=== PATIENT | female | born 1980 | race Hispanic/Latino ===

== ENCOUNTER 2017-10-18 09:51 | Emergency (ER) | payer SELFPAY ==
[2017-10-18 10:04] VITALS: BP 115/77
--- NOTE | 2017-10-18 10:51 | XRay Report ---
ROUTINE CHEST, TWO VIEWS: HISTORY: Upper respiratory infection, cough. The trachea, heart, mediastinal contour, lung roy and bony thorax are unremarkable. IMPRESSION: Unremarkable chest x-ray.
[2017-10-18] MEDS: GUAIFENESIN DM SYRUP PO ONE (11:48)
[2017-10-18] MEDS: MOTRIN PO ONE (11:48)
[2017-10-18] MEDS: DUONEB *Not for PRN Use IH ONE (11:48)
--- NOTE | 2017-10-18 11:53 | Emergency Department Report ---
- General Chief Complaint: Upper Respiratory Infection Stated Complaint: FLU LIKE SYMPTOMS Time Seen by Provider: 10/18/17 10:39 Source: patient Mode of arrival: Ambulatory Limitations: No Limitations - History of Present Illness Initial Comments: 37-year-old female past medical history smoking, asthma presents with complaint of approximately 5 days of persistent cough and subjective fever and chills. Patient is awake alert and oriented 3 no audible wheezing or stridor on exam. Fully lucid. Primarily complaining of persistent slightly productive cough with greenish yellowish sputum. MD Complaint: fever, cough, sore throat Onset/Timin -: days(s) Severity: mild Improves With: nothing Context: sick contacts Associated Symptoms: fever, chills, myalgias, cough Treatments Prior to Arrival: none - Related Data Previous Rx's Medication Instructions Recorded Last Taken Type Albuterol Sulfate [Ventolin Hfa] 1 puff IH Q4H PRN #1 hfa.aer.ad 10/18/17 Unknown Rx Azithromycin [Zithromax Z-EWA] 250 mg PO QDAY #1 pack 10/18/17 Unknown Rx Benzonatate [Tessalon Perles] 100 mg PO Q8HR PRN #20 capsule 10/18/17 Unknown Rx Dextromethorphan/Benzocaine 1 each PO Q4H PRN #1 box 10/18/17 Unknown Rx [Cepacol Sorethroat-Cough Jyothi] Ibuprofen [Motrin] 800 mg PO Q8HR PRN #30 tablet 10/18/17 Unknown Rx Phenylephrine/Dm/Acetaminop/GG 10 ml PO Q6H PRN #1 liquid 10/18/17 Unknown Rx [Mucinex Wshq-Eoi-Lhvshawivd Lq] Allergies Allergy/AdvReac Type Severity Reaction Status Date / Time No Known Allergies Allergy Unverified 10/18/17 10:04 ED Review of Systems ROS: Stated complaint: FLU LIKE SYMPTOMS Other details as noted in HPI Constitutional: denies: chills, fever Eyes: denies: eye pain, eye discharge, vision change ENT: denies: ear pain, throat pain Respiratory: cough. denies: shortness of breath, wheezing Cardiovascular: denies: chest pain, palpitations Endocrine: no symptoms reported Gastrointestinal: denies: abdominal pain, nausea, diarrhea Genitourinary: denies: urgency, dysuria, discharge Musculoskeletal: denies: back pain, joint swelling, arthralgia Skin: denies: rash, lesions Neurological: denies: headache, weakness, paresthesias Psychiatric: denies: anxiety, depression Hematological/Lymphatic: denies: easy bleeding, easy bruising ED Past Medical Hx - Surgical History Additional Surgical History: left shoulder - Social History Smoking Status: Current Every Day Smoker Substance Use Type: Marijuana - Medications Home Medications: Home Medications Medication Instructions Recorded Confirmed Last Taken Type Albuterol Sulfate [Ventolin Hfa] 1 puff IH Q4H PRN #1 hfa.aer.ad 10/18/17 Unknown Rx Azithromycin [Zithromax Z-EWA] 250 mg PO QDAY #1 pack 10/18/17 Unknown Rx Benzonatate [Tessalon Perles] 100 mg PO Q8HR PRN #20 capsule 10/18/17 Unknown Rx Dextromethorphan/Benzocaine 1 each PO Q4H PRN #1 box 10/18/17 Unknown Rx [Cepacol Sorethroat-Cough Jyothi] Ibuprofen [Motrin] 800 mg PO Q8HR PRN #30 tablet 10/18/17 Unknown Rx Phenylephrine/Dm/Acetaminop/GG 10 ml PO Q6H PRN #1 liquid 10/18/17 Unknown Rx [Mucinex Xnsc-Ahr-Zaaznckjcb Lq] ED Physical Exam - General Limitations: No Limitations General appearance: alert, in no apparent distress - Head Head exam: Present: atraumatic, normocephalic - Eye Eye exam: Present: normal appearance, PERRL, EOMI - ENT ENT exam: Present: mucous membranes moist - Neck Neck exam: Present: normal inspection - Respiratory Respiratory exam: Present: rhonchi (slightly coarse breath sounds bilaterally on auscultation). Absent: respiratory distress - Cardiovascular Cardiovascular Exam: Present: regular rate, normal rhythm. Absent: systolic murmur, diastolic murmur, rubs, gallop - GI/Abdominal GI/Abdominal exam: Present: soft, normal bowel sounds - Extremities Exam Extremities exam: Present: normal inspection - Back Exam Back exam: Present: normal inspection - Neurological Exam Neurological exam: Present: alert, oriented X3 - Psychiatric Psychiatric exam: Present: normal affect, normal mood - Skin Skin exam: Present: warm, dry, intact, normal color. Absent: rash ED Course Vital Signs 10/18/17 10:01 Temperature 98 F Pulse Rate 88 Blood Pressure 115/77 ED Medical Decision Making - Medical Decision Making A/P: Acute bronchitis 1-albuterol inhaler, Motrin when necessary, Z-Ewa, throat lozenges, Mucinex 2-follow-up with primary care doctor 3-vital signs stable for discharge, patient tolerating by mouth fluid and food without difficulty 4- chest x-ray unremarkable Critical care attestation.: If time is entered above; I have spent that time in minutes in the direct care of this critically ill patient, excluding procedure time. ED Disposition Clinical Impression: Upper respiratory infection Qualifiers: URI type: unspecified URI Qualified Code(s): J06.9 - Acute upper respiratory infection, unspecified Reactive airway disease Qualifiers: Asthma severity: mild Asthma persistence: unspecified Qualified Code(s): J45.909 - Unspecified asthma, uncomplicated Disposition: TO HOME OR SELFCARE Is pt being admited?: No Does the pt Need Aspirin: No Condition: Stable Instructions: Acute Bronchitis (ED), Upper Respiratory Infection (ED) Prescriptions: Albuterol Sulfate [Ventolin Hfa] 1 puff IH Q4H PRN #1 hfa.aer.ad PRN Reason: Cough Azithromycin [Zithromax Z-EWA] 250 mg PO QDAY #1 pack Benzonatate [Tessalon Perles] 100 mg PO Q8HR PRN #20 capsule PRN Reason: Cough Dextromethorphan/Benzocaine [Cepacol Sorethroat-Cough Jyothi] 1 each PO Q4H PRN #1 box PRN Reason: Cough Ibuprofen [Motrin] 800 mg PO Q8HR PRN #30 tablet PRN Reason: Pain Phenylephrine/Dm/Acetaminop/GG [Mucinex Tjcn-Aiw-Vybpjsaqat Lq] 10 ml PO Q6H PRN #1 liquid PRN Reason: Cough Referrals: [facility] [Outside] - 3-5 Days [facility] [Outside] - 3-5 Days Forms: Work/School Release Form(ED) Time of Disposition: 11:51
== END 2017-10-18 12:07 | disposition home or self-care (01) ==
LOC: ED 09:51
DX: J06.9 Acute upper respiratory infection, unspecified (principal); J45.909 Unspecified asthma, uncomplicated; F17.200 Nicotine dependence, unspecified, uncomplicated; F12.10 Cannabis abuse, uncomplicated
CPT/HCPCS: 71046; 94640; 99283

== ENCOUNTER 2020-08-12 00:08 | Emergency (ER) | payer SELFPAY | END 2020-08-12 00:20 | disposition left against medical advice (07) | LOC: ED 00:08 | DX: Z00.8 Encounter for other general examination (principal); Z53.21 Procedure and treatment not carried out due to patient leaving prior to being seen by health care provider ==

== ENCOUNTER 2021-08-28 22:34 | Emergency (ER) | payer SELFPAY ==
--- NOTE | 2021-08-28 23:06 | Emergency Department Report ---
ED Psych HPI - General Chief Complaint: Psych Stated Complaint: PSYCH Time Seen by Provider: 08/28/21 22:49 Source: patient, EMS Mode of arrival: Stretcher - History of Present Illness Initial Comments: Patient is 41 years old female with history of schizophrenia. Patient also has history of drug abuse mainly methamphetamine. Patient brought to the emergency room via EMS from home for evaluation of suicidal ideation. Patient stated that she relapsed on methamphetamine yesterday and since then she has been having auditory hallucination and visual hallucination two. She stated that she feels suicidal and her plan is to overdose on medication. MD Complaint: suicidal ideation, feels depressed, altered mental status -: This morning Associated Psychiatric Symptoms: depression, suicidal ideation, racing thoughts, auditory hallucinations, visual hallucinations Quality: constant Context: recent drug abuse Associated Symptoms: denies other symptoms Treatments Prior to Arrival: none If Self Harm: admits thoughts of, intentional overdose - Related Data Previous Rx's Medication Instructions Recorded Last Taken Type Albuterol Sulfate [Ventolin Hfa] 1 puff IH Q4H PRN #1 hfa.aer.ad 10/18/17 Unknown Rx Azithromycin [Zithromax Z-EWA] 250 mg PO QDAY #1 pack 10/18/17 Unknown Rx Benzonatate [Tessalon Perles] 100 mg PO Q8HR PRN #20 capsule 10/18/17 Unknown Rx Dextromethorphan/Benzocaine 1 each PO Q4H PRN #1 box 10/18/17 Unknown Rx [Cepacol Sorethroat-Cough Jyothi] Ibuprofen [Motrin] 800 mg PO Q8HR PRN #30 tablet 10/18/17 Unknown Rx Phenylephrine/Dm/Acetaminop/GG 10 ml PO Q6H PRN #1 liquid 10/18/17 Unknown Rx [Mucinex Fsyz-Dih-Cikqlkwuit Lq] OLANZapine [Zyprexa] 5 mg PO DAILY #30 08/30/21 Unknown Rx hydrOXYzine PAMOATE [Vistaril] 25 mg PO BID PRN #60 capsule 08/30/21 Unknown Rx traZODone [Desyrel] 50 mg PO QHS #30 tab 08/30/21 Unknown Rx Allergies Allergy/AdvReac Type Severity Reaction Status Date / Time No Known Allergies Allergy Unverified 10/18/17 10:04 ED Review of Systems ROS: Stated complaint: PSYCH Other details as noted in HPI Comment: All other systems reviewed and negative Constitutional: denies: chills, fever Respiratory: denies: cough, shortness of breath, SOB with exertion, SOB at rest Cardiovascular: denies: chest pain, palpitations Gastrointestinal: denies: abdominal pain, nausea, vomiting Musculoskeletal: denies: back pain Neurological: denies: headache, weakness, numbness, paresthesias, confusion Psychiatric: depression, auditory hallucinations, visual hallucinations, suicidal thoughts. denies: homicidal thoughts ED Past Medical Hx - Past Medical History Previous Medical History?: No - Surgical History Past Surgical History?: No Additional Surgical History: left shoulder - Social History Smoking Status: Current Every Day Smoker Substance Use Type: Alcohol - Medications Home Medications: Home Medications Medication Instructions Recorded Confirmed Last Taken Type Albuterol Sulfate [Ventolin Hfa] 1 puff IH Q4H PRN #1 hfa.aer.ad 10/18/17 Unknown Rx Azithromycin [Zithromax Z-EWA] 250 mg PO QDAY #1 pack 10/18/17 Unknown Rx Benzonatate [Tessalon Perles] 100 mg PO Q8HR PRN #20 capsule 10/18/17 Unknown Rx Dextromethorphan/Benzocaine 1 each PO Q4H PRN #1 box 10/18/17 Unknown Rx [Cepacol Sorethroat-Cough Jyothi] Ibuprofen [Motrin] 800 mg PO Q8HR PRN #30 tablet 10/18/17 Unknown Rx Phenylephrine/Dm/Acetaminop/GG 10 ml PO Q6H PRN #1 liquid 10/18/17 Unknown Rx [Mucinex Ukti-Wwr-Sslulnncdf Lq] OLANZapine [Zyprexa] 5 mg PO DAILY #30 08/30/21 Unknown Rx hydrOXYzine PAMOATE [Vistaril] 25 mg PO BID PRN #60 capsule 08/30/21 Unknown Rx traZODone [Desyrel] 50 mg PO QHS #30 tab 08/30/21 Unknown Rx ED Physical Exam - General Limitations: No Limitations General appearance: alert, in no apparent distress, anxious, other (Restless ) - Head Head exam: Present: atraumatic, normocephalic - Eye Eye exam: Present: normal appearance - ENT ENT exam: Present: normal exam, normal orophraynx, mucous membranes moist - Neck Neck exam: Present: normal inspection, full ROM. Absent: tenderness, meningismus - Respiratory Respiratory exam: Present: normal lung sounds bilaterally - Cardiovascular Cardiovascular Exam: Present: tachycardia - GI/Abdominal GI/Abdominal exam: Present: soft, normal bowel sounds. Absent: distended, tenderness, guarding, rebound, rigid, organomegaly, mass, bruit, pulsatile mass, hernia - Extremities Exam Extremities exam: Present: normal inspection, full ROM, normal capillary refill. Absent: tenderness, calf tenderness - Back Exam Back exam: Present: normal inspection, full ROM. Absent: CVA tenderness (R), CVA tenderness (L) - Neurological Exam Neurological exam: Present: alert, oriented X3, CN II-XII intact, normal gait, reflexes normal. Absent: motor sensory deficit - Psychiatric Psychiatric exam: Present: anxious, suicidal ideation. Absent: homicidal ideation - Skin Skin exam: Present: warm, intact, normal color ED Course Vital Signs 08/28/21 08/29/21 08/29/21 22:34 00:20 09:44 Temperature 97.8 F Pulse Rate 116 H Respiratory 18 Rate Blood Pressure 129/89 [Right] O2 Sat by Pulse 98 99 99 Oximetry 08/29/21 08/29/21 08/29/21 12:00 19:35 19:40 Temperature 98.8 F 98.5 F Pulse Rate 104 H 89 Respiratory 18 18 Rate Blood Pressure 107/74 102/79 [Right] O2 Sat by Pulse 97 97 97 Oximetry 08/30/21 10:49 Temperature 98.6 F Pulse Rate 100 H Respiratory 18 Rate Blood Pressure 120/83 [Right] O2 Sat by Pulse 99 Oximetry ED Medical Decision Making - Lab Data Result diagrams: 08/28/21 23:15 08/28/21 23:15 - Medical Decision Making Patient is 41 years old female with history of schizophrenia. Patient also has history of drug abuse mainly methamphetamine. Patient brought to the emergency room via EMS from home for evaluation of suicidal ideation. Patient stated that she relapsed on methamphetamine yesterday and since then she has been having auditory hallucination and visual hallucination two. She stated that she feels suicidal and her plan is to overdose on medication. Labs reviewed and is unremarkable. Patient is medically cleared to be evaluated by our psychiatric team. Critical care attestation.: If time is entered above; I have spent that time in minutes in the direct care of this critically ill patient, excluding procedure time. ED Disposition Clinical Impression: Encounter for medical screening examination, Encounter for behavioral health screening, History of suicidal ideation Disposition: 01 HOME / SELF CARE / HOMELESS Is pt being admited?: No Condition: Good Additional Instructions: Please follow-up with outpatient resources that have been provided to the patient. Follow-up with a primary care doctor within the next 4 to 6 weeks. Follow-up with a psychiatrist and mental health specialist within the next week. Avoid consumption of tobacco, alcohol, and recreational drugs. Please return to the emergency room right away with new pain, worsened pain, migration of pain, projectile vomiting, change in mental status, confusion, inability tolerate liquid feeds, new, worsened or different symptoms not present on the initial emergency room evaluation professional and Agency Contacts To help [facility] (03/03) [place] Crisis Line: Suicide Prevention Line: Crisis Text Line: Text START to [phone] Emergency: 911 Outpatient COMMUNITY Behavioral Health Resources: [facility]: [facility] [address] [place], [place] [address] [facility] [address] [place] [address] Friday thru Friday - 8am - 5pm Call to schedule an assessment for mental health and substance abuse programs [facility] Address: [address] [place] [address] Friday thru Friday- 7am-2pm [facility] Address: [address] [place] [address] Friday thru Friday: 8:30AM-5PM Prescriptions: traZODone [Desyrel] 50 mg PO QHS #30 tab hydrOXYzine PAMOATE [Vistaril] 25 mg PO BID PRN #60 capsule PRN Reason: Anxiety OLANZapine [Zyprexa] 5 mg PO DAILY #30 Referrals: [facility] [Outside] - 3-5 Days [facility] [Outside] - 3-5 Days
[2021-08-28 23:36] LABS: Basophils # (Auto) 0.1 K/mm3 (0.0-0.1); Basophils % (Auto) 1.4 % (0.0-1.8); Eosinophils # (Auto) 0.1 K/mm3 (0.0-0.4); Eosinophils % (Auto) 1.9 % (0.0-4.3); Hematocrit 50.8 % (30.3-42.9); Hemoglobin 16.6 gm/dl (10.1-14.3); Lymphocytes # (Auto) 1.6 K/mm3 (1.2-5.4); Lymphocytes % (Auto) 23.8 % (13.4-35.0); Mean Corpuscular HGB Conc 33 % (30-34); Mean Corpuscular Volume 92 fl (79-97); Monocytes # (Auto) 0.6 K/mm3 (0.0-0.8); Monocytes % (Auto) 8.8 % (0.0-7.3); Platelet Count 270 K/mm3 (140-440); Red Blood Count 5.54 M/mm3 (3.65-5.03); Red Cell Distribution Width 13.8 % (13.2-15.2)
[2021-08-29 01:04] LABS: Blood Urea Nitrogen 18 mg/dL (7-17); Calcium 9.6 mg/dL (8.4-10.2); Hemolysis Index 19
[2021-08-29 01:09] LABS: BUN/Creatinine Ratio 26
--- NOTE | 2021-08-29 10:52 | Consultation ---
History of Present Illness - Reason for Consult Consult date: 08/29/21 Reason for consult: SI, hallucinatons - History of Present Psychiatric Illness The patient was seen today. She is a 41y/o female patient. She is crying during the evaluation. She appears anxious. She is fidgety. She says she relapsed on methamphetamines. She says she is depressed, hopeless and suicidal. She denies having a plan. The patient says she's hearing voices telling her to hurt herself. The patient says her is also here for the same thing. PAST PSYCHIATRIC HISTORY: Diagnoses: schizophrenia Suicide attempts or Self-harm behavior: Yes Prior psychiatric hospitalizations: Yes Substance Abuse history: Methamphetamines Previous psychiatric medications tried: could not recall Outpatient treatment: not currently PAST MEDICAL HISTORY: unknown Family Psychiatric History: None reported or documented SOCIAL HISTORY Marital Status: Living Arrangements: Homeless Employment Status: Unemployed Access to guns/weapons: Denies Education: History of Abuse:denies Legal History: Denies REVIEW OF SYSTEMS Constitutional: Negative for weight loss ENT: Negative for stridor Respiratory: Negative for cough or hemoptysis All other systems reviewed and are negative MENTAL STATUS EXAMINATION General Appearance and Behavior: Age appropriate, good hygiene, wearing appropriate clothes. fidgety,, anxious, cooperative Cooperation: Cooperative Psychomotor Behavior: Psychomotor normal Mood: Depressed Affect and affective range: Tearful Thought Process: Goal directed Thought Content: hallucinations, depression Speech: Normal tone and pace Suicidal Ideation: Yes Homicidal Ideation: Denies Hallucinations: Auditory Delusions: Denies Impulse Control: Poor Insight and Judgment: Limited insight and fair judgment Memory: Limited Attention: distracted Orientation: a/o x 3 Assessment (1) Methamphetamine Dependence (2) Schizophrenia Current Visit: Yes Status: Acute Treatment Plan 1013 Olanzapine 5mg po daily Trazodone 50mg po qhs Vistaril 25mg po BID Medical: Per primary Disposition: Recommend acute psychiatric inpatient treatment Will follow. Thanks Case staffed with Dr. Rincon Medications and Allergies Allergies Allergy/AdvReac Type Severity Reaction Status Date / Time No Known Allergies Allergy Unverified 10/18/17 10:04 Home Medications Medication Instructions Recorded Confirmed Last Taken Type Albuterol Sulfate [Ventolin Hfa] 1 puff IH Q4H PRN #1 hfa.aer.ad 10/18/17 Unknown Rx Azithromycin [Zithromax Z-EWA] 250 mg PO QDAY #1 pack 10/18/17 Unknown Rx Benzonatate [Tessalon Perles] 100 mg PO Q8HR PRN #20 capsule 10/18/17 Unknown Rx Dextromethorphan/Benzocaine 1 each PO Q4H PRN #1 box 10/18/17 Unknown Rx [Cepacol Sorethroat-Cough Jyothi] Ibuprofen [Motrin] 800 mg PO Q8HR PRN #30 tablet 10/18/17 Unknown Rx Phenylephrine/Dm/Acetaminop/GG 10 ml PO Q6H PRN #1 liquid 10/18/17 Unknown Rx [Mucinex Mkul-Lcc-Bsesexhndh Lq] Mental Status Exam - Vital signs Last Vital Signs Temp 97.8 F 08/28/21 22:34 Pulse 116 H 08/28/21 22:34 Resp 18 08/28/21 22:34 BP 129/89 08/28/21 22:34 Pulse Ox 99 08/29/21 09:44 Results Result Diagrams: 08/28/21 23:15 08/28/21 23:15 Abnormal lab results 08/28/21 08/28/21 08/28/21 Range/Units 23:15 23:15 23:15 RBC 5.54 H (3.65-5.03) M/mm3 Hgb 16.6 H (10.1-14.3) gm/dl Hct 50.8 H (30.3-42.9) % [place] % (Auto) 8.8 H (0.0-7.3) % Carbon Dioxide 20 L (22-30) mmol/L BUN 18 H (7-17) mg/dL Glucose 118 H (65-100) mg/dL Salicylates < 0.3 L (2.8-20.0) mg/dL Acetaminophen (10.0-30.0) ug/mL 08/28/21 Range/Units 23:15 RBC (3.65-5.03) M/mm3 Hgb (10.1-14.3) gm/dl Hct (30.3-42.9) % [place] % (Auto) (0.0-7.3) % Carbon Dioxide (22-30) mmol/L BUN (7-17) mg/dL Glucose (65-100) mg/dL Salicylates (2.8-20.0) mg/dL Acetaminophen 5.0 L (10.0-30.0) ug/mL All other labs normal.
[2021-08-29] MEDS: hydrOXYzine PAMOATE 25 MG CAP PO SCH ×2 (11:08→21:58)
[2021-08-29] MEDS ORDERED: LORazepam 2 MG/ML VIAL IM PRN (11:54)
[2021-08-29] MEDS ORDERED: HALOPERIDOL LACTATE 5 MG/1 ML INJ IM PRN (11:54)
--- NOTE | 2021-08-29 11:57 | Event Note ---
Date: 08/29/21 The patient was evaluated in the emergency department for symptoms described in the history of present illness. He/she was evaluated in the context of the global COVID-19 pandemic, which necessitated consideration that the patient might be at risk for infection with the virus that causes COVID-19. Institutional protocols and algorithms that pertain to the evaluation of patients at risk for COVID-19 are in a state of rapid change based on information released by regulatory bodies including the CDC and federal and state organizations. These policies and algorithms were followed during the patient's care in the emergency department. Please note that these policies, procedures and recommendations changed on a rapid basis. Laboratory studies, vital signs, nursing documentation, ER documentation, and psychiatric documentation are reviewed and appreciated. Nursing team reports no acute events this morning or concerns. The patient is awake and ambulating and does not appear to be in any acute distress. The patient was deemed medically suitable for psychiatric disposition and placement during his initial ER evaluation. The patient continues to remain medically suitable for psychiatric placement and disposition. sHe is currently pending psychiatric placement. Initial tachycardia is likely secondary to methamphetamine consumption. Mild dehydration noted on laboratory studies secondary to probable dehydration as well as methamphetamine consumption. We are awaiting COVID swab, as well as urinalysis. Urine drug screen will not affect the emergency room for medical decision making. ER will follow along as the patient provides these things. Sure to the patient's urinalysis demonstrate any actionable findings, we will a ddress them
[2021-08-29 13:07] LABS: Bilirubin,Urine NEG (Negative); Blood,Urine NEG (Negative); Color,Urine Yellow (Yellow); Mucus,Urine FEW /HPF; Protein,Urine <15 mg/dL mg/dL (Negative)
[2021-08-29 13:14] LABS: Benzodiazepines Screen,Urine Negative; Cannabinoid Screen,Urine Negative; Methadone Screen,Urine Negative; Opiate Screen,Urine Negative
[2021-08-29 13:46] LABS: Amphetamine Screen,Urine Positive; Cocaine Screen,Urine Positive
[2021-08-29] MEDS ORDERED: traZODone 50 MG TAB PO SCH (22:00)
--- NOTE | 2021-08-30 10:03 | Progress Note ---
Subjective - Reason for Consult Consult date: 08/30/21 Reason for consult: SI, meth addiction - Chief Complaint Chief complaint: The patient was seen today. She is now stating she feels better. The patient is denying SI/HI or any fear of endangerment. She is also denying hallucinations of any kind. I ask the patient what happened that she's feeling so much better today than yesterday, she says "I talked to his mom. She says I can come back there." I ask her if she wanted me to tell that who's also a patient in psych hold, she says "yes, will you please let him know. I haven't had a chance to talk to him." REVIEW OF SYSTEMS Constitutional: Negative for weight loss ENT: Negative for stridor Respiratory: Negative for cough or hemoptysis All other systems reviewed and are negative MENTAL STATUS EXAMINATION General Appearance and Behavior: Age appropriate, good hygiene, wearing appropriate clothes. calm, and cooperative Cooperation: Cooperative Psychomotor Behavior: Psychomotor normal Mood: a lot better Affect and affective range: Congruent with stated moood Thought Process: Goal directed Thought Content: Denies, optimistic Speech: Normal tone and pace Suicidal Ideation: Denies Homicidal Ideation: Denies Hallucinations: Denies Delusions: Denies Impulse Control: Limited Insight and Judgment: Limited insight and fair judgment Memory: Limited Attention: attentive Orientation: a/o x 3 Assessment (1) Methamphetamine Dependence (2) Bipolar Disorder Treatment Plan d/c 1013 Olanzapine 5mg po daily Trazodone 50mg po qhs Vistaril 25mg po BID Medical: Per primary Disposition: Do not recommend acute psychiatric inpatient treatment The hoof and shoe inspector to give the patient all necessary resources including drug rehab The hoof and shoe inspector to discuss safety plan The patient to abstain from all illicit drug use. Will sign off. Thanks Case staffed with Dr. Rincon Mental Status Exam - Vital signs Last Vital Signs Temp 98.5 F 08/29/21 19:35 Pulse 89 08/29/21 19:35 Resp 18 08/29/21 19:35 BP 102/79 08/29/21 19:35 Pulse Ox 97 08/29/21 19:40
[2021-08-30 10:56] VITALS: BP 120/83
[2021-08-30] MEDS: hydrOXYzine PAMOATE 25 MG CAP PO SCH (11:30)
--- NOTE | 2021-08-30 11:47 | Event Note ---
Date: 08/30/21 The patient is seen and examined. She is awake, alert, oriented and sober. She demonstrates a rational lucid decision making thought process and capacity. She is not homicidal or suicidal at this time. Her 1013 has been discontinued by the psychiatric recommendations. In addition, it is our opinion that she does not meet criteria for 1013 hold or involuntary hold at this time. She endorses readiness for discharge. Nursing team reports no issues or events overnight. Vital Signs 08/28/21 08/29/21 08/29/21 22:34 00:20 09:44 Temperature 97.8 F Pulse Rate 116 H Respiratory 18 Rate Blood Pressure 129/89 [Right] O2 Sat by Pulse 98 99 99 Oximetry 08/29/21 08/29/21 08/29/21 12:00 19:35 19:40 Temperature 98.8 F 98.5 F Pulse Rate 104 H 89 Respiratory 18 18 Rate Blood Pressure 107/74 102/79 [Right] O2 Sat by Pulse 97 97 97 Oximetry 08/30/21 10:49 Temperature 98.6 F Pulse Rate 100 H Respiratory 18 Rate Blood Pressure 120/83 [Right] O2 Sat by Pulse 99 Oximetry
== END 2021-08-30 12:29 | disposition home or self-care (01) ==
LOC: ED 22:34
DX: F20.9 Schizophrenia, unspecified (principal); R45.851 Suicidal ideations; F17.200 Nicotine dependence, unspecified, uncomplicated; Z20.822 Contact with and (suspected) exposure to COVID-19
CPT/HCPCS: 36415; 80048; 80307; 81001; 84703; 85025; 99284; Q0177; U0003; 80320; J3490; G0480